=== PATIENT | female | born 1970 | race Caucasian/White ===

== ENCOUNTER → 2018-11-14 05:58 | Day surgery (SDC) | payer BC ==
[~2018-11-14 05:58] MED LIST: Acetaminophen TAB* 325 MG ONE; Acetaminophen TAB* 325 MG PO PRN; Buffered Lidocaine 0.9% SYRIN* 5 ML/SYR SYRINGE INTRADERM ONE; Chloroprocaine 2%* 20 ML VIAL ONE; Dexamethasone IV* 4 MG/ML 1 ML (4 MG) ONE; DiMENhydriNATE IV* 50 MG/ML VIAL IV PUSH PRN; DiMENhydriNATE IV* 50 MG/ML VIAL ONE; Famotidine IV* 10 MG/ML 2 ML (20 mg) IV ONE; Famotidine IV* 10 MG/ML 2 ML (20 mg) ONE; Ketorolac INJ* 30 MG/ML 1 ML VIAL ONE; Lactated Ringers 1000 ML Bag* 1,000 ML IV SCH; Lidocaine 2% PF * 5 ML VIAL ONE; Midazolam* 1 MG/ML 5 ML VIAL (5 MG) ONE; Naloxone* 0.4 MG/ML 1 ML VIAL IV PRN; Ondansetron INJ* 2 MG/ML VIAL ONE; Propofol* 10 MG/ML 20 ML BTL ONE; fentaNYL* 50 MCG/ML 2 ML VIAL (100 MCG VIAL) IV PRN; fentaNYL* 50 MCG/ML 2 ML VIAL (100 MCG VIAL) ONE
[2018-11-14 09:46] VITALS: BP 116/81
--- NOTE | 2018-11-18 02:35 | OP ---
DATE OF OPERATION: 11/14/18 - SDS DATE OF : 70 SURGEON: Jake Shirley MD ANESTHESIA: Spinal. PRE-OP DIAGNOSIS: Abnormal uterine bleeding and endometrial polyp. POST-OP DIAGNOSIS: Abnormal uterine bleeding and endometrial polyp. OPERATIVE PROCEDURE: Hysteroscopy, dilation and curettage. ESTIMATED BLOOD LOSS: Minimal and less than 5 mL. SPECIMEN SENT TO PATHOLOGY: An endometrial polyp and endometrial curettings. FLUIDS: The patient received 700 cc IV crystalloid fluid. OUTPUT: Her urine output was clear at about 200 cc. FINDINGS: The patient had a uterus that sounded to 8 cm in an anteverted position. There was a single large mid posterior wall intrauterine polyp. Otherwise, normal proliferative endometrium. DESCRIPTION OF PROCEDURE: The patient was taken to the operating room where she was identified, she was placed on the operating table where a spinal anesthetic was obtained without difficulty. She was then placed in the dorsal lithotomy position, prepped and draped in a normal sterile fashion. Attention was then brought on to the patient's perineum where the bladder was catheterized and clear of urine. A weighted-speculum was then inserted into the patient's vagina. The cervix was identified and grasped with a single- toothed tenaculum. The uterus was then sounded, was noted to be 8 cm long with an anteverted position. At this point, Hegar dilators were used to dilate the cervix, after which a diagnostic hysteroscope was introduced through the cervix and on survey, the patient's uterine cavity revealed a large endometrial polyp at mid posterior wall. The tubal ostia were identified and they were within normal limits. At this point, the hysteroscope was removed from the patient's uterus and vagina and I then proceeded to perform a sharp curettage with the first curetted sample. I was able to remove the polyp in its entirety and this was sent separately to Pathology. I then followed with the curettage until the uterine cavity was deemed to be completely denuded, after which this was confirmed with a second look with the hysteroscope. All the instruments were then removed from the patient's vagina. Sponge, lap, needle counts were correct x2. She was then transferred to recovery room area in stable condition. [id number]/[facility] #: [id number] MTDD
== END | disposition home or self-care (01) ==
LOC: OR 05:58
PROVIDERS: ATTEND Obstetrics & Gynecology
DX: N92.1 Excessive and frequent menstruation with irregular cycle (principal); N84.0 Polyp of corpus uteri; E78.00 Pure hypercholesterolemia, unspecified; F41.8 Other specified anxiety disorders; I34.1 Nonrheumatic mitral (valve) prolapse
CPT/HCPCS: 81025; 88305; A9270-GY; J1100; J1240; J1885; J2250; J2400; J2405; J2704; J3010

== ENCOUNTER 2019-07-08 08:16 | Emergency (ER) | payer BC ==
--- NOTE | 2019-07-08 08:19 | UC ---
Complaint Female HPI - HPI Summary HPI Summary: 48-year-old female with burning on urination about a week. She had a vaginal yeast infection for which she took Diflucan and she thinks that resolved but now she continues to have the burning on urination. Denies any fever or chills. She does have mild low back pain. - History Of Current Complaint Stated Complaint: UTI Time Seen by Provider: 07/08/19 08:18 Hx Obtained From: Patient ?: No - patient thinks she is menopausal Onset/Duration: Gradual Onset, Lasting Days Timing: Intermittent Severity Initially: Mild Severity Currently: Mild Character: Burning Aggravating Factor(s): Urination Alleviating Factor(s): Nothing Associated Signs And Symptoms: Positive: Negative. Negative: Vaginal Bleeding/ Discharge, Vaginal Discharge, Genital Swelling, Genital Blisters - Allergies/Home Medications Allergies/Adverse Reactions: Allergies Allergy/AdvReac Type Severity Reaction Status Date / Time amoxicillin Allergy Severe rash , Verified 07/08/19 08:24 vomiting Sulfa (Sulfonamide Allergy Severe rash, Verified 07/08/19 08:24 Antibiotics) vomiting tropical fruit Allergy Severe Swelling Uncoded 07/08/19 08:24 Of Face,Lips,& Throat PMH/Surg Hx/FS Hx/Imm Hx Previously Healthy: Yes Psychological History: Anxiety - Surgical History Surgical History: None - Family History Known Family History: Positive: Non-Contributory - Social History Lives: With Family Alcohol Use: Occasionally Substance Use Type: None Smoking Status (MU): Never Smoked Tobacco Review of Systems All Other Systems Reviewed And Are Negative: Yes Genitourinary: Positive: Dysuria, Frequency, Urgency. Negative: Vaginal/Penile Burning, Vaginal/Penile Itching, Vaginal/Penile Discharge, Vaginal/Penile Pain, Vaginal/Penile Tenderness Is Patient Immunocompromised?: No Physical Exam Triage Information Reviewed: Yes Appearance: Well-Appearing, No Pain Distress, Well-Nourished Vital Signs Reviewed: Yes Eye Exam: Normal Respiratory: Positive: Lungs clear, Normal breath sounds, No respiratory distress, No accessory muscle use Cardiovascular: Positive: RRR, No Murmur, Pulses Normal, Brisk Capillary Refill Abdomen Description: Positive: Nontender, No Organomegaly, Soft. Negative: CVA Tenderness (R), CVA Tenderness (L), Distended, Guarding, Hepatomegaly, McBurney' s Point Tenderness, Splenomegaly Bowel Sounds: Positive: Present Musculoskeletal Exam: Normal Neurological Exam: Normal Psychological Exam: Normal Skin Exam: Normal Complaint Female Dx - Course Course Of Treatment: Urinalysis was positive for leukocytes and blood. Because the patient has not had a period in about a year she thinks that she is menopausal however she is sexually active therefore did a test which was negative. - Differential Dx/Diagnosis Provider Diagnosis: UTI (urinary tract infection) Discharge - Sign-Out/Discharge Documenting (check all that apply): Patient Departure All imaging exams completed and their final reports reviewed: No Studies - Discharge Plan Condition: Fair Disposition: HOME Prescriptions: Nitrofurantoin Monohyd/M-Cryst [Macrobid 100 mg Capsule] 100 mg PO BID 7 Days # 14 cap Patient Education Materials: Urinary Tract Infection in Women (DC) Referrals: Veena Sorensen MD [Primary Care Provider] - Additional Instructions: Increase fluids, take the fluconazole (pt's own) if you feel that you are developing a yeast infection. Follow-up with your primary care provider if no improvement in 3 or 4 days. Go to the emergency room if you develop fever, chills, increased back pain and vomiting and unable keep medication down. - Billing Disposition and Condition Condition: FAIR Disposition: Home - Attestation Statements Provider Attestation: I was available for consult. This patient was seen by the [facility]. The patient was not presented to , seen by or examined by me -Rolanda Monte MD
[2019-07-08 08:24] VITALS: BP 116/76
== END 2019-07-08 09:10 | disposition home or self-care (01) ==
LOC: UCEAST 08:16
DX: N39.0 Urinary tract infection, site not specified (principal); F41.9 Anxiety disorder, unspecified; Z88.2 Allergy status to sulfonamides
CPT/HCPCS: 81002; 81025; 87077; 87086; 87186; 99212; G0463